=== PATIENT | female | born 1945 | race Two or more races ===

== ENCOUNTER 2017-12-08 13:51 | Emergency (ER) | payer OTHER, MEDICAID ==
[~2017-12-08] VITALS: Ht 152.4 cm; Wt 65.8 kg
[2017-12-08] MEDS ORDERED: ceFAZolin 1gm/50ml Premix 50 ML IV ONE (14:00)
[2017-12-08] MEDS ORDERED: Tetanus/Diptheria/Pertussis Vaccine 0.5ml Syr IM ONE (14:15)
[2017-12-08] MEDS ORDERED: Lidocaine 1% 10mg/ml/Epi 0.005mg/ml 30ml vial INJ ONE (14:15)
--- NOTE | 2017-12-08 14:37 | Emergency Room Report ---
History of Present Illness General Chief Complaint: Multiple Trauma/Fall Source: Family Member Present Illness HPI Patient is a 72-year-old female who presented after a fall down one step onto an escalator. She subsequently landed on her right side and cut her right elbow. Patient had denies loss of consciousness. She reports having a pain to her face. She denies any severe headache. She reports having only history of hypertension for which she takes losartan. Patient was noted to have the no recent tetanus vaccine. She denies any allergies to medications. Injury occurred less than one hour prior to arrival. She denies any pain with deep breaths. She denies any neck pain. Allergies: Coded Allergies: No Known Allergies (Unverified , 12/08/17) Patient History Past Medical History: HTN Now: No Reviewed Nursing Documentation: PMH: Agreed; PSxH: Agreed Nursing Documentation-PMH Past Medical History: No History, Except For Hx Hypertension: Yes Review of Systems All Other Systems: negative except mentioned in HPI Physical Exam Vital Signs Date Time Temp Pulse Resp B/P (MAP) Pulse Ox O2 Delivery O2 Flow Rate FiO2 12/08/17 13:46 98.3 80 18 142/76 97 Room Air 98.2 Sp02 EP Interpretation: reviewed, normal General Appearance: normal inspection, alert, no apparent distress, GCS 15 Head: normocephalic, atraumatic Eyes: normal eye exam, PERRL, EOMI, lids + conjunctiva normal, no hyphema, no racoon eyes ENT: normal ENT inspection, TMs + canals normal, oropharynx normal, no grullon signs, other - complex laceration between eyebrows to nasal bridge Neck: normal inspection, supple/symm/no masses, trach midline, no bony tend, full range of motion without pain Respiratory: effort normal, no retractions, clear to auscultation, chest symmetrical, palpation of chest normal, speaking in full sentences Cardiovascular: regular rate, rhythm, no JVD Cardiovascular #2: 2+ radial (R), 2+ radial (L), 2+ dorsalis pedis (R), 2+ dorsalis pedis (L) Gastrointestinal: normal inspection, non-tender, non-distended, no rebound/ guarding, normal bowel sounds Genitourinary: normal inspection Musculoskeletal: normal inspection, normal ROM, non-tender, back normal Skin: normal palpation, other - complex nasal and facial laceration, laceration to right upper arm near elbow Lymphatic: normal inspection Neurologic: oriented x3, sensory intact, motor strength/tone normal, normal speech Psychiatric: normal inspection, memory normal, mood normal, no suicidal/ homicidal ideation Procedures Laceration/Wound Repair Laceration/Wound Repair : Consent: Verbal Wound Location: upper extremity Wound's Depth, Shape: superficial Wound Length (cm): 2 Irrigated w/ Saline (ccs): 30 Betadine Prep?: No - chlorhexidine Volume Anesthetic (ccs): 4 Wound Debrided: minimal Wound Repaired With: sutures Suture Size/Type: 4:0, other - chromic gut Number of Sutures: 7 Sterile Dressing Applied?: Yes Patient Tolerated: Well Complications: None Medical Decision Making Diagnostic Impression: Primary Impression: Facial laceration Additional Impressions: Arm laceration Fall ER Course Patient presented after a fall. Differential diagnosis included was not limited facial fracture, foreign body, close head injury, syncopal episode, basilar ischemia. Because of complexity of patient's case laboratory testing and imaging studies were ordered. The patient was noted to have complex facial lacerations. Dr. Bari Orellana was consult for plastic surgery. The lacerations to the face was repaired by Dr. Orellana.Patient was given IV Ancef. The right arm laceration was repaired by me. The patient was given explicit discharge instructions. CT imaging of the head and facial bones are no evidence of fracture. The patient was advised to recheck with primary care physician. Last Vital Signs Date Time Temp Pulse Resp B/P (MAP) Pulse Ox O2 Delivery O2 Flow Rate FiO2 12/08/17 13:46 98.3 80 18 142/76 97 Room Air 98.2 Status: improved Disposition: HOME, SELF-CARE Condition: Stable Scripts Cephalexin* (KEFLEX*) 500 Mg Capsule 500 MG ORAL EVERY 12 HOURS, #28 CAP 0 Refills Prov: Buzz Neely MD 12/08/17 Buzz Neely MD Dec 08, 2017 14:37
--- NOTE | 2017-12-08 15:47 | Diagnostic Imaging Report ---
Indications: Head pain, status post fall Technique: Spiral acquisitions obtained through the brain. Angled axial and coronal 5 x 5 mm slices were reconstructed. Total dose length product 1923.71 mGycm. CTDI vol(s) 70.38,28.19 mGy. Dose reduction achieved using automated exposure control Comparison: None. Findings: No evidence of acute intracranial hemorrhage or edema. No mass effect or midline shift. Ventricles and extra axial CSF spaces are within normal limits for age. There is periventricular deep white matter low-attenuation, consistent with chronic ischemic change. The calvarium is intact. There is evidence of facial laceration. Impression: Age-related changes. Negative for acute intracranial bleed or mass effect Evidence of facial injury-see separate facial CT report The CT scanner at [facility] is accredited by the [employer] and the scans are performed using protocols designed to limit radiation exposure to as low as reasonably achievable to attain images of sufficient resolution adequate for diagnostic evaluation.
--- NOTE | 2017-12-08 15:53 | Diagnostic Imaging Report ---
Indications: Facial pain status post fall Technique: Spiral images obtained through the facial bones. No IV contrast utilized. Multiplanar reconstructions were generated.Total dose length product 1923.71 mGycm. CTDIvol(s) 70.38,28.19 mGy. Dose reduction achieved using automated exposure control Comparison: none Findings: There is a comminuted minimally displaced fracture of the tip of the nasal bone. There is a soft tissue defect overlying the nasal bone,, extending well into the supranasal frontal region with some gas bubbles also deep to the tip of the nasal bone, consistent with penetrating trauma/laceration. The nasal septum is intact and midline. The nasal process of the maxilla is intact. No other acute fractures. No worrisome sinus opacification. The optic globes and retroseptal orbits are intact. The patient is edentulous. The mandible is intact. The mastoids are clear. The upper aerodigestive tract is unremarkable. No stones cervical mass or adenopathy. Impression: Positive for nondisplaced minimal fracture of the tip of the nasal bone Positive for facial laceration in the midline, from the tip of the nasal bone to the frontal region. No definite radiopaque foreign body No other fractures or acute abnormality The CT scanner at [facility] is accredited by the [employer] and the scans are performed using protocols designed to limit radiation exposure to as low as reasonably achievable to attain images of sufficient resolution adequate for diagnostic evaluation.
--- NOTE | 2017-12-08 15:57 | Diagnostic Imaging Report ---
Indications:Elbow pain, status post fall Technique: Three or 4 views of the right elbow Comparison: None Findings: No acute fractures. No dislocations. No definite joint effusion Impression: Negative
[2017-12-08 15:59] VITALS: BP 166/69
--- NOTE | 2017-12-08 18:24 | Pre-Procedure Note/Attestation ---
Pre-Procedure Note/Attestation Complete Prior to Procedure Planned Procedure: right - lacera Procedure Narrative: laceration of mid forehead nose andtip of nose Indications for Procedure Pre-Operative Diagnosis: plastic repair of traumatic laceration of forehead andnose Attestation I attest that I discussed the nature of the procedure; its benefits; risks and complications; and alternatives (and the risks and benefits of such alternatives ), prior to the procedure, with the patient (or the patient's legal sales representative [employer]). I attest that, if there was a reasonable possibility of needing a blood transfusion, the patient (or the patient's legal sales representative [employer]) was given the [facility] standardized written summary, pursuant to the [place] Blood Safety Act ([place] Health and Safety Code # 1645, as amended). I attest that I re-evaluated the patient just prior to the surgery and that there has been no change in the patient's H&P, except as documented below: Bari Orellana MD Dec 08, 2017 18:24
[2017-12-08] MEDS ORDERED: CEPHALEXIN500 MG ORAL (18:29)
[2017-12-08] MEDS ORDERED: Bacitracin Oint UD TOPIC ONE (18:56)
[2017-12-08 19:06] VITALS: BP 163/74
[2017-12-08 19:07] VITALS: BP 163/74
[2017-12-08] MEDS ORDERED: ACETAMINOPHEN500 M3 ORAL (19:07)
--- NOTE | 2017-12-09 10:54 | Brief Operative Note ---
Immediate Post Operative Note Operative Note Pre-op Diagnosis: plastic repair of traumatic laceration of forehead andnose Procedure: plastic repair of forehead laceration and nose laceration Post-op Diagnosis: laceration of forehead and nose Surgeon: matti Anesthesia: local Specimen: none Complications: none Condition: stable Fluids: none Estimated Blood Loss: minimal Drains: none Implant(s) used?: No Bari Orellana MD Dec 09, 2017 10:54
--- NOTE | 2017-12-09 17:00 | Operative Note - Dictated ---
DATE OF OPERATION: 12/09/2017 SURGEON: Bari Orellana M.D. The patient is a 72-year-old female, who fell down on to the escalator and sustained a laceration of the forehead and nose in multiple areas. The patient was aware that she can have a plastic surgery repair of her forehead and nose and was aware of the risks, complications, and alternative methods of treatment including possible infection and need for further repair. The patient was thus seen in the emergency room and was noted to have severe laceration of the junction of the forehead to the nasion or the dorsal aspect of the upper nose and some other minor cuts to the forehead and another laceration on the right side of the nose, which was a trapdoor type laceration. OPERATIVE PROCEDURE: The patient was given Betadine and irrigated with saline copious amounts and under pressure. The nose was injected with 1% Xylocaine and 1 to 200:000 of epinephrine using a 27-gauge needle. The nose was then irrigated again and explored and also prepped again with Betadine. There was an 11 blade that was used to debride some of the ragged edges and the deep tissues were sutured using a 4-0 Vicryl suture interrupted and then the dermis of the skin was put together using 4-0 Vicryl suture in the dermis, multiple sutures, and then there was a continuous running of 5-0 blue Prolene in the skin. We then turned our attention to the lower part of the nose where there was a trapdoor laceration and that was excised to release the trapdoor and then was sutured using just a superficial 4-0 blue Prolene in the skin. The patient was given bacitracin and was given instructions to come to my office to have the sutures removed in 5 days. Bari Orellana M.D. DR: EARNEST JOB#: [id number] CC:
== END 2017-12-08 19:07 | disposition home or self-care (01) ==
LOC: EDBD 13:51 → EMR 14:21
DX: S51.011A Laceration without foreign body of right elbow, initial encounter (principal); S01.81XA Laceration without foreign body of other part of head, initial encounter; W10.0XXA Fall (on)(from) escalator, initial encounter; Y93.89 Activity, other specified; Y92.9 Unspecified place or not applicable; I10 Essential (primary) hypertension; Z23 Encounter for immunization
CPT/HCPCS: 12001; 70450; 70486; 73070; 90471; 90715; 96365; 99284; J0690